=== PATIENT | male | born 1965 | race Caucasian/White ===

== ENCOUNTER → 2018-01-05 14:00 | Outpatient (CLI) | payer OTHER, SELFPAY ==
--- NOTE | 2018-01-05 14:40 | EKG12_ITS ---
Test Reason : PRE OP Blood Pressure : / mmHG Vent. Rate : 075 BPM Atrial Rate : 075 BPM P-R Int : 180 ms QRS Dur : 102 ms QT Int : 390 ms P-R-T Axes : 044 -19 071 degrees QTc Int : 435 ms Normal sinus rhythm Normal ECG Confirmed by EVA MEYERS MD ([id number]), editor house organ DAR RODRIGUES ([id number]) on 01/06/2018 3:56:26 PM Referred By: Carroll Jones Confirmed By:EVA MEYERS MD
--- OUTSIDE RECORDS SUMMARY | 2018-02-17 12:17 | XMS RPT_ITS | Summary of Care ---
:1965 Author Organization [facility] Address [address] [id number] Phone Care Team Providers Name Role Phone Unavailable Primary Care Provider Unavailable Encounter Details Date Type Department Care Team Description 11/07/2016 Hospital Encounter [facility] Tasia Marie MD [address] [place] [address] [phone] 335 Lilian Huynh CNP [address] [place] [address] [phone] [place] [address] Social History Tobacco Use Types Packs/Day Years Used Date Never Assessed Sex Assigned at Date Recorded Not on file as of this encounter Plan of Treatment Not on fileas of this encounter
--- OUTSIDE RECORDS SUMMARY | 2018-02-17 12:17 | XMS RPT_ITS | Summary of Care ---
:1965 Author Organization [facility] Address [address] [place] [address] Phone Care Team Providers Name Role Phone Unavailable Primary Care Provider Unavailable Encounter Details Date Type Department Care Team Description 11/13/2016 Hospital Encounter [facility] [place] [address] [address] [place] [address] Social History Tobacco Use Types Packs/Day Years Used Date Never Assessed Sex Assigned at Date Recorded Not on file as of this encounter Plan of Treatment Not on fileas of this encounter Results CBC and Differential (11/13/2016 3:28 PM) Component Value Ref Range WBC 8.3 3.6 - 10.4 K/mcL RBC 5.16 4.0 - 5.5 M/mcL Hemoglobin 15.7 12.9 - 16.9 g/dL Hematocrit 46.0 37.9 - 49.2 % MCV 89.1 82.8 - 99.3 FL MCH 30.4 27.7 - 34.6 pg MCHC 34.1 32.9 - 35.5 g/dL RDW 13.9 10 - 14.3 % Platelets 166 139 - 354 K/mcL MPV 8.6 6.6 - 10.8 FL Absolute Neutrophils 5.7 1.4 - 6.8 K/mcL Absolute Lymphocytes 1.8 0.9 - 3.6 K/mcL Absolute Monocytes 0.6 0.2 - 0.6 K/mcL Absolute Eosinophils 0.1 0 - 0.5 K/mcL Absolute Basophils 0.0 0 - 0.2 K/mcL Segmented Neut 68.2 % Lymphocytes 22.0 % Monocytes 7.7 % Eosinophils 1.6 % Basophils 0.5 % Specimen Performing Laboratory Blood [address] [address] Basic Metabolic Panel (11/13/2016 3:27 PM) Component Value Ref Range Glucose 92 70 - 99 mg/dL Comment: This test result might be falsely depressed or falsely elevated on samples drawn from patients taking Sulfasalazine and Sulfapyridine. Venipuncture should occur prior to taking either of these drugs. BUN 13 8 - 25 mg/dL Creatinine 0.88 0.50 - 1.30 mg/dL eGFR >=60 ml/min/1.73sq.m Comment: Non- GFR Calc eGFR is an estimated Glomerular Filtration Rate based on the value of the patient's serum creatinine. In outpatients, eGFR should be used as a helpful tool in screening for CKD. In inpatients or patients with acute renal failure, eGFR represents the GFR at the moment of the draw and should be used with caution. eGFR >=60Comment: GFR Calc ml/min/1.73sq.m Calcium 9.0 8.4 - 10.2 mg/dL Sodium 138 135 - 145 mmol/L Potassium 3.9 3.5 - 5.1 mmol/L Chloride 105 98 - 108 mmol/L CO2 25 21 - 32 mmol/L Specimen Performing Laboratory Blood [address] [address] in this encounter
--- OUTSIDE RECORDS SUMMARY | 2018-02-17 12:17 | XMS RPT_ITS ---
:1965 Author Organization [facility] Care Team Providers Name Role Phone Carroll Jones Attending Unavailable Carroll Jones Referring Unavailable JESS MASTERSON Primary Care Unavailable Cuauhtemoc Meyers Attending Unavailable Carroll Jones Referring Unavailable Carroll Jones Attending Unavailable Carroll Jones Referring Unavailable JESS MASTERSON Primary Care Unavailable Cooper Rutledge Admitting Unavailable Cooper Rutledge Attending Unavailable Carroll Cardoza Primary Care Unavailable Cooper Rutledge Attending Unavailable Carroll Cardoza Referring Unavailable Carroll Cardoza Primary Care Unavailable Cooper Rutledge Admitting Unavailable PROBLEMS PROBLEMS DATE TYPE CONDITION / CODE ATTENDING STATUS SOURCE 01/22/2018 Unknown M25.841 - Other Carroll Jones Active [place] specified joint Community disorders, right [facility] hand / Repository M25.841(ICD-10) 01/15/2018 Unknown Z01.810 - Encounter Cuauhtemoc Meyers Active [place] for preprocedural [facility] Hospital examination / Repository Z01.810(ICD-10) PROCEDURES PROCEDURES No Procedure Records FoundRESULTS RESULTS CYST Observed: 01/12/2018 Status: F Source: STAN 12:00 AM [facility] HOSPITAL REPOSITORY Patient: LAURYN PETERSON : 1965 (52/M) Acct Num: [id number] Phys: Carroll Jones MD Unit Num: [id number] Loc: LABSPEC Specimen: [id number] Received: 01/12/18 - 1318 Spec Type: Cyst TISSUES 1 TISSUES: CYST GROSS DESCRIPTION Received in fixative is one container labeled with the patient's name and designated cyst right finger. The specimen consists of a single irregular fragment of escalante-white soft tissue measuring 0.6 x 0.6 x 0.2 cm. The specimen is totally submitted in one cassette. / AM:georgi 12/13/17 TC:5 CPT: 40836 HEADER OPERATION: Excision cyst right middle finger, trigger release PRE-OP DIAGNOSIS: Cyst right middle finger, trigger finger of same TISSUE SUBMITTED: Cyst right middle finger MICROSCOPIC DESCRIPTION Slides are reviewed. MICROSCOPIC DIAGNOSIS Cyst right middle finger, biopsy: Consistent with ganglion cyst. SJ:georgi 01/13/18 Signed Ced Woods 01/13/18 <signature on file> Performed By: #### PCYST #### [facility] [address] [facility] [place], [address] 12 LEAD ELECTROCARDIOGRAM Observed: 01/09/2018 Status: F Source: [place] 9:24 AM [facility] REPOSITORY [facility] Cardiovascular Services [address] [place] [address] 12 Lead EKG 01/05/18 1447 MR#: [id number] Acct: [id number] Name: LAURYN PETERSON Rep #: [id number] : 1965 52 From: Cuauhtemoc Meyers MD Attending Dr: Carroll Jones MD Status: REG CLI Ordering Dr: Carroll Jones MD Date: 01/05/18 Location: [facility] Sex: M C Admitted: Test Reason : PRE OP Blood Pressure : / mmHG Vent. Rate : 075 BPM Atrial Rate : 075 BPM P-R Int : 180 ms QRS Dur : 102 ms QT Int : 390 ms P-R-T Axes : 044 -19 071 degrees QTc Int : 435 ms Normal sinus rhythm Normal ECG Confirmed by CUAUHTEMOC MEYERS MD ([id number]), story editor DAR RODRIGUES ([id number]) on 01/06/2018 3:56:26 PM Referred By: Carroll Jones Confirmed By:CUAUHTEMOC MEYERS MD 01/06/18 1556 Date Cuauhtemoc Meyers MD CC: OUT OF TOWN DOCTOR; Carroll Jones MD Signed ALLERGIES ALLERGIES DATE TYPE / CODE NAME / CODE REACTION SEVERITY SOURCE Drug/066476 penicillin Unknown [facility] 003([facility] CT) System Repository ENCOUNTERS ENCOUNTERS ADMIT/DISCHARGE ACCOUNT NUMBER ADMITTING ENCOUNTER LOCATION SOURCE CLASS 01/19/2018/01/20/20 [id number] Cooper Rutledge Ambulatory Orthodoxy Orthodoxy 18 R [facility] ding:[facility] System ACM Repository 01/19/2018 [id number] Ambulatory [address] [place] [address] Repository 01/09/2018 [id number] Ambulatory [facility] ding:LABSPEC Repository 01/05/2018 [id number] Ambulatory [facility] ding:[facility] Repository 01/05/2018 [id number] Ambulatory BMSBuilding: [facility] Repository 12/17/2017/12/18/19 [id number] Cooper Rutledge Ambulatory Cooper Maty Orthodoxy 18 R DOBuilding:T [facility] homaeRoom: Health System Room 1 Repository PAYERS PAYERS ENCOUNTER GUARANTOR PAYER SUBSCRIBER SOURCE 01/19/2018 LAURYN COMBS Orthodoxy TEVIN: Insurance:Bhupinder ABARCA: [facility] [id number] cy Number: Effective [id number] System [address] Date:2017-12-26 - [address] Repository [address] [place] [address] [id number] [address]Wxi: Name:[place] [phone]: [phone] () [place] [phone]: [phone] () 01/19/2018 [facility] BOWERSDOB: Insurance: for BOWERSDOB: Hospitals [id number] [facility] PlanBannericy [id number] Repository [facility] Number: [facility] [address] [address] [place] [address] [id number] [place] [address] [phone]: Date:Plan Name:Health [id number]: () (HP) 01/09/2018 [facility] Insurance: BOWERSDOB: [address] Number: [id number] Hospital [id number]: [phone]) [id number] Repository [phone] () Date:0811-09-89LZ [address], [place] [address]RV: 01/09/2018 Secondary NOT GIVENUNK [place] Insurance:SELF PAY [facility] Number: Effective Repository Date:2018-01-09 01/05/2018 [facility] Insurance: BOWERSDOB: [address] Number: [id number] Hospital [address]Mrq: [phone] [id number] Repository [phone] () Date:7466-88-66PR [address], [place] [address]JL: 01/05/2018 Secondary NOT GIVENUNK Stan Insurance:SELF PAY [facility] Number: Effective Repository Date:2018-01-05 01/05/2018 [facility] Insurance: BOWERSDOB: [address] Number: [id number] Hospital [address]Arc: [phone] [id number] Repository [phone] () Date:8245-68-93CH [address], [place] [address]DZ: 01/05/2018 Secondary NOT GIVENUNK [place] Insurance:SELF PAY [facility] Number: Effective Repository Date:2018-01-05 12/17/2017 LAURYN Vallejo BOWERSDOB: Insurance:1500 BOWERSDOB: [facility] [id number] [facility] [id number] [address] PGBAPolicy Number: tw[address] rd Repository [place] [address]Scf: ([phone]) Date:2017-12-1710569Xfu: () [id number] [phone] Name:CD:[id number] ()Tel: [phone] WDB [phone] [phone] () [place] [address]JE:
--- OUTSIDE RECORDS SUMMARY | 2018-02-17 12:17 | XMS RPT_ITS | Summary of Care ---
:1965 Author Organization [facility] Address [address] [phone] Phone Care Team Providers Name Role Phone Unavailable Primary Care Provider Unavailable Encounter Details Date Type Department Care Team Description 10/24/2016 Hospital Encounter [facility] Lilian Valera, ELLIOT [place], [place] [address] [address] [place] [address] Social History Tobacco Use Types Packs/Day Years Used Date Never Assessed Sex Assigned at Date Recorded Not on file as of this encounter Plan of Treatment Not on fileas of this encounter
== END ==
PROVIDERS: Referring Provider Specialist; Visit Provider Specialist
DX: Z01.810 Encounter for preprocedural cardiovascular examination (principal)
CPT/HCPCS: 93005

== ENCOUNTER → 2018-01-09 15:08 | Outpatient (CLI) | payer OTHER, SELFPAY ==
--- NOTE | 2018-01-12 | CYST_PTH ---
PATIENT: LAURYN PETERSON LOC: [facility] U#:[id number] AGE/SX: 59/M ROOM: RE01/09/[address]: Dr. Carroll Jones MD : 1965 BED: DIS: SPEC #: [id number] RECD: 01/12/18 13:18 STATUS: ANN-MARIE NIYA #: [id number] AQUILINO: 01/12/18 00:[address]: Carroll Jones DEPT: SURGICAL PATHOLOGY RECD BY: Rahul Rizzo ENTERED: 01/12/18 13:18 SP TYPE: Cyst OTHR DR: Out of Town Doctor [facility] Tissues: CYST Procedures: Surgery Specimen Level III HEADER OPERATION: Excision cyst right middle finger, trigger release PRE-OP DIAGNOSIS: Cyst right middle finger, trigger finger of same TISSUE SUBMITTED: Cyst right middle finger MICROSCOPIC DIAGNOSIS Cyst right middle finger, biopsy: Consistent with ganglion cyst. SJ:georgi 01/13/18 MICROSCOPIC DESCRIPTION Slides are reviewed. GROSS DESCRIPTION Received in fixative is one container labeled with the patient's name and designated cyst right finger. The specimen consists of a single irregular fragment of escalante-white soft tissue measuring 0.6 x 0.6 x 0.2 cm. The specimen is totally submitted in one cassette. / AM:georgi 12/13/17 TC:5 CPT: 12729
--- OUTSIDE RECORDS SUMMARY | 2018-03-06 14:25 | XMS RPT_ITS ---
:1965 Author Organization [facility] Care Team Providers Name Role Phone Cooper Rutledge Admitting Unavailable Cooper Rutledge Attending Unavailable Carroll Cardoza Primary Care Unavailable Cooper Rutledge Attending Unavailable Carroll Cardoza Referring Unavailable Carroll Cardoza Primary Care Unavailable Cooper Rutledge Admitting Unavailable Carroll Jones Attending Unavailable Carroll Jones Referring Unavailable JESS MASTERSON Primary Care Unavailable Carroll Jones Attending Unavailable Carroll Jones Referring Unavailable JESS MASTERSON Primary Care Unavailable Cuauhtemoc Meyers Attending Unavailable Carroll Jones Referring Unavailable PROBLEMS PROBLEMS DATE TYPE CONDITION / CODE ATTENDING STATUS SOURCE 01/22/2018 Unknown M25.841 - Other Carroll Jones Active [facility] specified joint Community disorders, [facility] hand / Repository M25.841(ICD-10) 01/15/2018 Unknown Z01.810 - Encounter Cuauhtemoc Meyers Active Stan for preprocedural [facility] Hospital examination / Repository Z01.810(ICD-10) PROCEDURES PROCEDURES No Procedure Records FoundRESULTS RESULTS CYST Observed: 01/12/2018 Status: F Source: STAN 12:00 AM [facility] HOSPITAL REPOSITORY Patient: LAURYN PETERSON : 1965 (52/M) Acct Num: [id number] Phys: Carroll Jones MD Unit Num: [id number] Loc: LABSPEC Specimen: [id number] Received: 01/12/18 - 1318 Spec Type: Cyst TISSUES 1 TISSUES: CYST GROSS DESCRIPTION Received in fixative is one container labeled with the patient's name and designated cyst right finger. The specimen consists of a single irregular fragment of escalante-white soft tissue measuring 0.6 x 0.6 x 0.2 cm. The specimen is totally submitted in one cassette. / AM:georgi 12/13/17 TC:5 CPT: 58806 HEADER OPERATION: Excision cyst right middle finger, trigger release PRE-OP DIAGNOSIS: Cyst right middle finger, trigger finger of same TISSUE SUBMITTED: Cyst right middle finger MICROSCOPIC DESCRIPTION Slides are reviewed. MICROSCOPIC DIAGNOSIS Cyst right middle finger, biopsy: Consistent with ganglion cyst. SJ:georgi 01/13/18 Signed Ced Woods 01/13/18 <signature on file> Performed By: #### PCYST #### [facility] [address] [facility] [place], [address] 12 LEAD ELECTROCARDIOGRAM Observed: 01/09/2018 Status: F Source: [place] 9:24 AM REPOSITORY [facility] Cardiovascular Services [address] [place] [address] 12 Lead EKG 01/05/18 1447 MR#: [id number] Acct: [id number] Name: LAURYN PETERSON Rep #: [id number] : 1965 52 From: Cuauhtemoc Meyers MD Attending Dr: Carroll Jones MD Status: REG CLI Ordering Dr: Carroll Jones MD Date: 01/05/18 Location: [facility] Sex: M C Admitted: Test Reason : PRE OP Blood Pressure : / mmHG Vent. Rate : 075 BPM Atrial Rate : 075 BPM P-R Int : 180 ms QRS Dur : 102 ms QT Int : 390 ms P-R-T Axes : 044 -19 071 degrees QTc Int : 435 ms Normal sinus rhythm Normal ECG Confirmed by CUAUHTEMOC MEYERS MD ([id number]), news editor DAR RODRIGUES ([id number]) on 01/06/2018 3:56:26 PM Referred By: Carroll Jones Confirmed By:CUAUHTEMOC MEYERS MD 01/06/18 1556 Date Cuauhtemoc Meyers MD CC: OUT OF TOWN DOCTOR; Carroll Jones MD Signed ALLERGIES ALLERGIES DATE TYPE / CODE NAME / CODE REACTION SEVERITY SOURCE Drug/400573 penicillin Unknown [facility]S Witness 003([facility] CT) System Repository ENCOUNTERS ENCOUNTERS ADMIT/DISCHARGE ACCOUNT NUMBER ADMITTING ENCOUNTER LOCATION SOURCE CLASS 01/19/2018/01/20/20 [id number] Cooper Rutledge Ambulatory Jehovah'S Witness Jehovah'S Witness 18 R [facility] ding:[facility] System ACM Repository 01/19/2018 [id number] Ambulatory [address] [place] [address] Repository 01/09/2018 [id number] Ambulatory [facility] ding:LABSPEC Repository 01/05/2018 [id number] Ambulatory [facility] ding:[facility] Repository 01/05/2018 [id number] Ambulatory BMSBuilding: [facility] Repository 12/17/2017/12/18/19 [id number] Cooper Rutledge Ambulatory Cooper Maty Jehovah'S Witness 18 R DOBuilding:T [facility] homaeRoom: Health System Room 1 Repository PAYERS PAYERS ENCOUNTER GUARANTOR PAYER SUBSCRIBER SOURCE 01/19/2018 LAURYN COMBS Jehovah'S Witness TEVIN: Insurance:Bhupinder ABARCA: [facility] [id number] cy Number: Effective [id number] [address] Date:2017-12-26 - [address] Repository [address] [place] [address] [id number] [address]Cry: Name:[place] [phone]: [id number] [facility] () [place] [phone]: [phone] () 01/19/2018 [facility] BOWERSDOB: Insurance: for BOWERSDOB: Hospitals [id number] [facility]icy [id number] Repository [facility] Number: [facility] [address] [place] [address] [id number] [place] [address] [id number]: Date:Plan Name:Health [id number]: () (HP) 01/09/2018 [facility] TR Insurance: BOWERSDOB: [address] Number: [id number] [address]Dnf: [phone]) [id number] Repository [phone] () Date:8471-33-71[address] [place] [address]YZ: 01/09/2018 Secondary NOT GIVENUNK [facility] Insurance:SELF PAY [facility] Number: Effective Repository Date:2018-01-09 01/05/2018 [facility] TR Insurance: BOWERSDOB: [address] Number: [id number] Hospital [address]All: ([phone]) [id number] Repository [phone] () Date:3589-19-50YE [address] [place] [place] [address]EP: 01/05/2018 Secondary NOT GIVENUNK Stan Insurance:SELF PAY [facility] Number: Effective Repository Date:2018-01-05 01/05/2018 [facility] TR Insurance: BOWERSDOB: [address] Number: [id number] Hospital [address]Pdm: [phone]) [id number] Repository [phone] () Date:7297-28-38[address] [place] [place], [place] [address]QW: 01/05/2018 Secondary NOT GIVENUNK [facility] Insurance:SELF PAY [facility] Number: Effective Repository Date:2018-01-05 12/17/2017 LAURYN Vallejo BOWERSDOB: Insurance:1500 BOWERSDOB: [facility] [id number] [facility] [id number] [address] PGBAPolicy Number: tw[address] Repository [place] Effective [place] [address]Hav: ([phone]) Date:2017-12-1799296Zvu: () [id number] [phone] Name:CD:[id number] ()Tel: [phone]) ELH [phone] [phone] () [place] [address]XB:
== END ==
PROVIDERS: Referring Provider Specialist; Visit Provider Specialist
DX: M25.841 Other specified joint disorders, right hand (principal)
CPT/HCPCS: 88304